=== PATIENT | male | born 1985 | race Hispanic/Latino ===

== ENCOUNTER 2018-02-20 12:04 | Emergency (ER) | payer SELFPAY ==
[2018-02-20 13:06] LABS: Basophils # (Auto) 0.1 K/mm3 (0.0-0.1); Basophils % (Auto) 0.8 % (0.0-1.8); Eosinophils # (Auto) 0.4 K/mm3 (0.0-0.4); Eosinophils % (Auto) 4.9 % (0.0-4.3); Hemoglobin 14.9 gm/dl (11.8-15.2); Lymphocytes # (Auto) 1.6 K/mm3 (1.2-5.4); Lymphocytes % (Auto) 20.6 % (13.4-35.0); Mean Corpuscular HGB Conc 34 % (32-34); Mean Corpuscular Hemoglobin 32 pg (28-32); Mean Corpuscular Volume 94 fl (84-94); Monocytes # (Auto) 0.7 K/mm3 (0.0-0.8); Monocytes % (Auto) 9.1 % (0.0-7.3); Platelet Count 225 K/mm3 (140-440); Red Blood Count 4.69 M/mm3 (3.65-5.03); Red Cell Distribution Width 13.3 % (13.2-15.2)
[2018-02-20 13:21] LABS: BUN/Creatinine Ratio 13; Blood Urea Nitrogen 9 mg/dL (9-20); Calcium 9.4 mg/dL (8.4-10.2); Hemolysis Index 4
[2018-02-20 13:49] LABS: Bacteria,Urine 1+ /HPF (Negative); Bilirubin,Urine NEG (Negative); Blood,Urine NEG (Negative); Calcium Oxalate Crystals,Urine 3+; Color,Urine Amber (Yellow); Hyaline Casts,Urine 3 /LPF; Mucus,Urine 1+ /HPF; Urobilinogen,Urine < 2.0 mg/dL (<2.0)
[2018-02-20 13:50] LABS: Cocaine Screen,Urine PRESUMPTIVE NEGATIVE; Methadone Screen,Urine PRESUMPTIVE NEGATIVE; Opiate Screen,Urine PRESUMPTIVE NEGATIVE
--- NOTE | 2018-02-20 14:16 | Emergency Department Report ---
ED Psych HPI - General Chief Complaint: Psych Stated Complaint: MEDICAL CLEARANCE PHP Time Seen by Provider: 02/20/18 14:15 Source: patient Mode of arrival: Ambulatory - History of Present Illness Initial Comments: Patient is a 32-year-old male past medical history of alcohol abuse, neuropathy and drug abuse who presents with medical clearance. Patient states that a couple hours ago he states that he took a 5 pills of gabapentin due to his right foot pain. The patient is staying at [facility] and since he took extra pills he needs to be medically cleared before he can return back. Patient denies any nausea or vomiting any pain when urinating. Any headaches. Patient denies any fever and states that he wants to get clean. - Related Data Allergies Allergy/AdvReac Type Severity Reaction Status Date / Time phenobarbital Allergy Unknown Verified 02/20/18 12:15 Sulfa (Sulfonamide Allergy Unknown Verified 02/20/18 12:15 Antibiotics) ED Review of Systems ROS: Stated complaint: MEDICAL CLEARANCE PHP Other details as noted in HPI Constitutional: denies: chills, fever Eyes: denies: eye pain, eye discharge, vision change ENT: denies: ear pain, throat pain Respiratory: denies: cough, shortness of breath, wheezing Cardiovascular: denies: chest pain, palpitations Endocrine: no symptoms reported Gastrointestinal: denies: abdominal pain, nausea, diarrhea Genitourinary: denies: urgency, dysuria Musculoskeletal: denies: back pain, joint swelling, arthralgia Skin: denies: rash, lesions Neurological: denies: headache, weakness, paresthesias Psychiatric: denies: anxiety, depression Hematological/Lymphatic: denies: easy bleeding, easy bruising ED Past Medical Hx - Past Medical History Previous Medical History?: No Hx Psychiatric Treatment: Yes (opioid dependency,ADHD, bipolar) Additional medical history: pancreatitis,alcohol abuse-in recovery [id number] - Surgical History Additional Surgical History: fx right femur - Social History Smoking Status: Former Smoker Substance Use Type: Heroin, Prescribed, Methamphetamines ED Physical Exam - General Limitations: No Limitations General appearance: alert, in no apparent distress - Head Head exam: Present: atraumatic, normocephalic - Eye Eye exam: Present: normal appearance - ENT ENT exam: Present: mucous membranes moist - Neck Neck exam: Present: normal inspection - Respiratory Respiratory exam: Present: normal lung sounds bilaterally. Absent: respiratory distress - Cardiovascular Cardiovascular Exam: Present: regular rate, normal rhythm. Absent: systolic murmur, diastolic murmur, rubs, gallop - GI/Abdominal GI/Abdominal exam: Present: soft, normal bowel sounds - Rectal Rectal exam: Present: deferred - Extremities Exam Extremities exam: Present: normal inspection - Back Exam Back exam: Present: normal inspection - Neurological Exam Neurological exam: Present: alert, oriented X3 - Psychiatric Psychiatric exam: Present: normal affect, normal mood - Skin Skin exam: Present: warm, dry, intact, normal color. Absent: rash ED Course Vital Signs 02/20/18 12:11 Temperature 98.2 F Pulse Rate 104 H Respiratory 18 Rate Blood Pressure 113/83 O2 Sat by Pulse 97 Oximetry ED Medical Decision Making - Lab Data Result diagrams: 02/20/18 12:19 02/20/18 12:19 Lab Results 02/20/18 02/20/18 02/20/18 Range/Units 12:19 12:19 12:19 WBC (4.5-11.0) K/mm3 RBC (3.65-5.03) M/mm3 Hgb (11.8-15.2) gm/dl Hct (35.5-45.6) % MCV (84-94) fl MCH (28-32) pg MCHC (32-34) % RDW (13.2-15.2) % Plt Count (140-440) K/mm3 Lymph % (Auto) (13.4-35.0) % [place] % (Auto) (0.0-7.3) % Eos % (Auto) (0.0-4.3) % Baso % (Auto) (0.0-1.8) % Lymph # (1.2-5.4) K/mm3 [place] # (0.0-0.8) K/mm3 Eos # (0.0-0.4) K/mm3 Baso # (0.0-0.1) K/mm3 Seg Neutrophils % (40.0-70.0) % Seg Neutrophils # (1.8-7.7) K/mm3 Sodium 141 (137-145) mmol/L Potassium 3.4 L (3.6-5.0) mmol/L Chloride 98.8 (98-107) mmol/L Carbon Dioxide 28 (22-30) mmol/L Anion Gap 18 mmol/L BUN 9 (9-20) mg/dL Creatinine 0.7 L (0.8-1.5) mg/dL Estimated GFR > 60 ml/min BUN/Creatinine Ratio 13 % Glucose 91 (75-100) mg/dL Calcium 9.4 (8.4-10.2) mg/dL Urine Color (Yellow) Urine Turbidity (Clear) Urine pH (5.0-7.0) Ur Specific [place] (1.003-1.030) Urine Protein (Negative) mg/dL Urine Glucose (UA) (Negative) mg/dL Urine Ketones (Negative) mg/dL Urine Blood (Negative) Urine Nitrite (Negative) Urine Bilirubin (Negative) Urine Urobilinogen (<2.0) mg/dL Ur Leukocyte Esterase (Negative) Urine WBC (Auto) (0.0-6.0) /HPF Urine RBC (Auto) (0.0-6.0) /HPF Urine Bacteria (Auto) (Negative) /HPF Calcium Oxalate Crystal Hyaline Casts /LPF Urine Mucus /HPF Salicylates < 0.3 L (2.8-20.0) mg/dL Urine Opiates Screen Urine Methadone Screen Acetaminophen < 5.0 L (10.0-30.0) ug/mL Ur Barbiturates Screen Ur Phencyclidine Scrn Urine Cocaine Screen Plasma/Serum Alcohol (0-0.07) % 02/20/18 02/20/18 02/20/18 Range/Units 12:19 12:19 12:43 WBC 7.7 (4.5-11.0) K/mm3 RBC 4.69 (3.65-5.03) M/mm3 Hgb 14.9 (11.8-15.2) gm/dl Hct 44.0 (35.5-45.6) % MCV 94 (84-94) fl MCH 32 (28-32) pg MCHC 34 (32-34) % RDW 13.3 (13.2-15.2) % Plt Count 225 (140-440) K/mm3 Lymph % (Auto) 20.6 (13.4-35.0) % [place] % (Auto) 9.1 H (0.0-7.3) % Eos % (Auto) 4.9 H (0.0-4.3) % Baso % (Auto) 0.8 (0.0-1.8) % Lymph # 1.6 (1.2-5.4) K/mm3 [place] # 0.7 (0.0-0.8) K/mm3 Eos # 0.4 (0.0-0.4) K/mm3 Baso # 0.1 (0.0-0.1) K/mm3 Seg Neutrophils % 64.6 (40.0-70.0) % Seg Neutrophils # 5.0 (1.8-7.7) K/mm3 Sodium (137-145) mmol/L Potassium (3.6-5.0) mmol/L Chloride (98-107) mmol/L Carbon Dioxide (22-30) mmol/L Anion Gap mmol/L BUN (9-20) mg/dL Creatinine (0.8-1.5) mg/dL Estimated GFR ml/min BUN/Creatinine Ratio % Glucose (75-100) mg/dL Calcium (8.4-10.2) mg/dL Urine Color Sumi (Yellow) Urine Turbidity Cloudy (Clear) Urine pH 5.0 (5.0-7.0) Ur Specific [place] 1.017 (1.003-1.030) Urine Protein 30 mg/dl (Negative) mg/dL Urine Glucose (UA) Neg (Negative) mg/dL Urine Ketones Neg (Negative) mg/dL Urine Blood Neg (Negative) Urine Nitrite Neg (Negative) Urine Bilirubin Neg (Negative) Urine Urobilinogen < 2.0 (<2.0) mg/dL Ur Leukocyte Esterase Tr (Negative) Urine WBC (Auto) 19.0 H (0.0-6.0) /HPF Urine RBC (Auto) 9.0 (0.0-6.0) /HPF Urine Bacteria (Auto) 1+ (Negative) /HPF Calcium Oxalate Crystal 3+ Hyaline Casts 3 /LPF Urine Mucus 1+ /HPF Salicylates (2.8-20.0) mg/dL Urine Opiates Screen Urine Methadone Screen Acetaminophen (10.0-30.0) ug/mL Ur Barbiturates Screen Ur Phencyclidine Scrn Urine Cocaine Screen Plasma/Serum Alcohol < 0.01 (0-0.07) % 02/20/18 Range/Units 12:43 WBC (4.5-11.0) K/mm3 RBC (3.65-5.03) M/mm3 Hgb (11.8-15.2) gm/dl Hct (35.5-45.6) % MCV (84-94) fl MCH (28-32) pg MCHC (32-34) % RDW (13.2-15.2) % Plt Count (140-440) K/mm3 Lymph % (Auto) (13.4-35.0) % [place] % (Auto) (0.0-7.3) % Eos % (Auto) (0.0-4.3) % Baso % (Auto) (0.0-1.8) % Lymph # (1.2-5.4) K/mm3 [place] # (0.0-0.8) K/mm3 Eos # (0.0-0.4) K/mm3 Baso # (0.0-0.1) K/mm3 Seg Neutrophils % (40.0-70.0) % Seg Neutrophils # (1.8-7.7) K/mm3 Sodium (137-145) mmol/L Potassium (3.6-5.0) mmol/L Chloride (98-107) mmol/L Carbon Dioxide (22-30) mmol/L Anion Gap mmol/L BUN (9-20) mg/dL Creatinine (0.8-1.5) mg/dL Estimated GFR ml/min BUN/Creatinine Ratio % Glucose (75-100) mg/dL Calcium (8.4-10.2) mg/dL Urine Color (Yellow) Urine Turbidity (Clear) Urine pH (5.0-7.0) Ur Specific [place] (1.003-1.030) Urine Protein (Negative) mg/dL Urine Glucose (UA) (Negative) mg/dL Urine Ketones (Negative) mg/dL Urine Blood (Negative) Urine Nitrite (Negative) Urine Bilirubin (Negative) Urine Urobilinogen (<2.0) mg/dL Ur Leukocyte Esterase (Negative) Urine WBC (Auto) (0.0-6.0) /HPF Urine RBC (Auto) (0.0-6.0) /HPF Urine Bacteria (Auto) (Negative) /HPF Calcium Oxalate Crystal Hyaline Casts /LPF Urine Mucus /HPF Salicylates (2.8-20.0) mg/dL Urine Opiates Screen Presumptive negative Urine Methadone Screen Presumptive negative Acetaminophen (10.0-30.0) ug/mL Ur Barbiturates Screen Presumptive negative Ur Phencyclidine Scrn Presumptive negative Urine Cocaine Screen Presumptive negative Plasma/Serum Alcohol (0-0.07) % - Medical Decision Making Cdx: Gapabentin abuse ddx: Alcohol intoxication, opiate abuse I will get cbc, bmp, urine drug screen and ua. Patient's lab work is unremarkable. Patient has been medically cleared to go to [facility]. Discussed final impression patient with supportive additional verbal instructions were given. Critical care attestation.: If time is entered above; I have spent that time in minutes in the direct care of this critically ill patient, excluding procedure time. ED Disposition Clinical Impression: Medical clearance for psychiatric admission Adverse effect of gabapentin Qualifiers: Encounter type: initial encounter Qualified Code(s): T42.6X5A - Adverse effect of other antiepileptic and sedative-hypnotic drugs, initial encounter Disposition: Z-41 HOSPICE- MED FAC Is pt being admited?: No Does the pt Need Aspirin: No Condition: Stable Instructions: Medical Clearance for Substance Abuse Treatment (ED) Referrals: DELON CARMONA MD [Staff Physician] - 3-5 Days
[2018-02-20 14:37] LABS: Amphetamine Screen,Urine PRESUMPTIVE POSITIVE; Benzodiazepines Screen,Urine PRESUMPTIVE POSITIVE; Cannabinoid Screen,Urine PRESUMPTIVE POSITIVE
[2018-02-20 15:31] VITALS: BP 117/71
== END 2018-02-20 15:33 | disposition home or self-care (01) ==
LOC: ED 12:04
DX: T42.6X5A Adverse effect of other antiepileptic and sedative-hypnotic drugs, initial encounter (principal); F90.9 Attention-deficit hyperactivity disorder, unspecified type; F15.10 Other stimulant abuse, uncomplicated; F11.20 Opioid dependence, uncomplicated; Z87.891 Personal history of nicotine dependence; Z88.8 Allergy status to other drugs, medicaments and biological substances; Z88.2 Allergy status to sulfonamides; X58.XXXA Exposure to other specified factors, initial encounter; Y93.89 Activity, other specified; Y92.89 Other specified places as the place of occurrence of the external cause; Y99.8 Other external cause status
CPT/HCPCS: 36415; 80048; 80307; 81001; 85025; 99284; G0480; 80320

== ENCOUNTER 2018-04-13 01:21 | Emergency (ER) | payer OTHER ==
[2018-04-13 01:49] VITALS: BP 132/83
[2018-04-13] MEDS ORDERED: ROCEPHIN IM STA (02:55)
[2018-04-13] MEDS ORDERED: XYLOCAINE 1% MPF 5 mL INFILTRATI ONE (02:55)
[2018-04-13] MEDS ORDERED: DELTASONE PO STA (02:59)
--- NOTE | 2018-04-13 03:11 | Emergency Department Report ---
- General Chief Complaint: Extremity Injury, Lower Stated Complaint: RT FOOT SWELLING NECK SORES Time Seen by Provider: 04/13/18 02:54 Source: patient Mode of arrival: Ambulatory Limitations: No Limitations - History of Present Illness Initial Comments: 33-year-old male with past medical history opiate dependency, presents to the emergency department complaining of a 2-3 day history of progressively worsening right foot swelling associated with redness and abrasions. Pain is dull and throbbing, worse with palpation and range of motion. He tried no home therapy to date. Reports no fever, chills, sweats, nausea, vomiting, chest pain, palpitations. Extremity Location: Right: Lower Leg Place: home Associated Symptoms: pain. denies: suspect foreign body present, unable to move injured part, weakness followed by dizziness, nausea/vomiting - Related Data Previous Rx's Medication Instructions Recorded Last Taken Type Chlorhexidine Gluconate [Hibiclens] 10 ml TP BID #240 liquid 04/13/18 Unknown Rx Clindamycin [Clindamycin CAP] 150 mg PO Q6HR #40 capsule 04/13/18 Unknown Rx Mupirocin [Bactroban 2%] 15 applic TP TID #15 gm 04/13/18 Unknown Rx cephALEXin [Keflex] 500 mg PO Q6HR #40 capsule 04/13/18 Unknown Rx Allergies Allergy/AdvReac Type Severity Reaction Status Date / Time phenobarbital Allergy Unknown Verified 02/20/18 12:15 Sulfa (Sulfonamide Allergy Unknown Verified 02/20/18 12:15 Antibiotics) ED Review of Systems ROS: Stated complaint: RT FOOT SWELLING NECK SORES Other details as noted in HPI Constitutional: denies: chills, fever Eyes: denies: eye pain, eye discharge, vision change ENT: denies: ear pain, throat pain Respiratory: denies: cough, shortness of breath, wheezing Cardiovascular: denies: chest pain, palpitations Endocrine: no symptoms reported Gastrointestinal: denies: abdominal pain, nausea, diarrhea Genitourinary: denies: urgency, dysuria Musculoskeletal: denies: back pain, joint swelling, arthralgia Skin: lesions. denies: rash Neurological: denies: headache, weakness, paresthesias Psychiatric: denies: anxiety, depression Hematological/Lymphatic: denies: easy bleeding, easy bruising ED Past Medical Hx - Past Medical History Previous Medical History?: Yes Hx Psychiatric Treatment: Yes (opioid dependency,ADHD, bipolar) Additional medical history: pancreatitis,alcohol abuse-in recovery [id number] - Surgical History Past Surgical History?: Yes Additional Surgical History: fx right femur - Social History Smoking Status: Never Smoker Substance Use Type: None - Medications Home Medications: Home Medications Medication Instructions Recorded Confirmed Last Taken Type Chlorhexidine Gluconate [Hibiclens] 10 ml TP BID #240 liquid 04/13/18 Unknown Rx Clindamycin [Clindamycin CAP] 150 mg PO Q6HR #40 capsule 04/13/18 Unknown Rx Mupirocin [Bactroban 2%] 15 applic TP TID #15 gm 04/13/18 Unknown Rx cephALEXin [Keflex] 500 mg PO Q6HR #40 capsule 04/13/18 Unknown Rx ED Physical Exam - General Limitations: No Limitations General appearance: alert, in no apparent distress - Head Head exam: Present: atraumatic, normocephalic - Eye Eye exam: Present: normal appearance - ENT ENT exam: Present: mucous membranes moist - Neck Neck exam: Present: normal inspection - Respiratory Respiratory exam: Present: normal lung sounds bilaterally. Absent: respiratory distress - Cardiovascular Cardiovascular Exam: Present: regular rate, normal rhythm. Absent: systolic murmur, diastolic murmur, rubs, gallop - GI/Abdominal GI/Abdominal exam: Present: soft, normal bowel sounds - Rectal Rectal exam: Present: deferred - Extremities Exam Extremities exam: Present: normal inspection, tenderness, normal capillary refill, pedal edema - Expanded Lower Extremity Exam Right Hip exam: Present: normal inspection, full ROM Upper Leg exam: Present: normal inspection, full ROM Knee exam: Present: normal inspection, full ROM Lower Leg exam: Present: tenderness, swelling, abrasion, erythema. Absent: deformity, crepidus, dislocation, palpable cord, Lesia's sign Ankle exam: Present: tenderness, swelling Foot/Toe exam: Present: tenderness, swelling, abrasion Neuro vascular tendon exam: Present: no vascular compromise 1 - Abrasion 2 - Abrasion 3 - Abrasion 4 - Abrasion - Back Exam Back exam: Present: normal inspection. Absent: muscle spasm, paraspinal tenderness, vertebral tenderness - Neurological Exam Neurological exam: Present: alert, oriented X3, CN II-XII intact. Absent: normal gait, abnormal gait - Psychiatric Psychiatric exam: Present: normal affect, normal mood - Skin Skin exam: Present: warm, dry, intact, normal color. Absent: rash ED Course Vital Signs 04/13/18 01:45 Temperature 98.3 F Pulse Rate 86 Respiratory 16 Rate Blood Pressure 132/83 O2 Sat by Pulse 96 Oximetry Critical care attestation.: If time is entered above; I have spent that time in minutes in the direct care of this critically ill patient, excluding procedure time. ED Disposition Clinical Impression: Cellulitis, Right leg swelling Disposition: - TO HOME OR SELFCARE Is pt being admited?: No Does the pt Need Aspirin: No Condition: Stable Instructions: Cellulitis (ED) Referrals: PRIMARY MD EDITH [Primary Care Provider] - 3-5 Days [facility] [Provider Group] - 3-5 Days
[2018-04-13] MEDS ORDERED: TORADOL IM STA (03:26)
== END 2018-04-13 03:58 | disposition home or self-care (01) ==
LOC: ED 01:21
DX: L03.115 Cellulitis of right lower limb (principal); F31.9 Bipolar disorder, unspecified; F90.9 Attention-deficit hyperactivity disorder, unspecified type; Z88.1 Allergy status to other antibiotic agents; Z88.2 Allergy status to sulfonamides
CPT/HCPCS: 96372; 99282; J0696; J1885; J7512

== ENCOUNTER 2019-09-21 23:42 | Emergency (ER) | payer OTHER ==
[2019-09-22 00:43] LABS: Basophils % (Auto) 0.3 % (0.0-1.8); Eosinophils # (Auto) 0.4 K/mm3 (0.0-0.4); Hematocrit 36.4 % (35.5-45.6); Hemoglobin 12.6 gm/dl (11.8-15.2); Lymphocytes # (Auto) 1.7 K/mm3 (1.2-5.4); Mean Corpuscular HGB Conc 35 % (32-34); Mean Corpuscular Volume 94 fl (84-94); Monocytes # (Auto) 0.5 K/mm3 (0.0-0.8); Monocytes % (Auto) 7.3 % (0.0-7.3); Platelet Count 249 K/mm3 (140-440); Red Blood Count 3.89 M/mm3 (3.65-5.03); Red Cell Distribution Width 12.9 % (13.2-15.2)
--- NOTE | 2019-09-22 00:59 | Emergency Department Report ---
ED Medical Clearance HPI - General Chief complaint: Medical Clearance Stated complaint: DETOX,HEROIN USE Time Seen by Provider: 09/22/19 00:22 Source: patient Mode of arrival: Ambulatory Limitations: No Limitations - History of Present Illness Initial comments: 34-year-old male with a past medical history of polysubstance abuse presents to the hospital requesting medical clearance for detox for [place] admission. Patient states he initially went to [place] was told to come to the ER for medical clearance. Patient has a been abusing multiple drugs for the past 5 days. Patient is abusing IV heroin, smoking cocaine, and also using Xanax. On average she takes 6 to 8 mg of Xanax a day. He denies alcohol abuse. No physical complaints reported Home medications: Previous Rx's Medication Instructions Recorded Last Taken Type Chlorhexidine Gluconate [Hibiclens] 10 ml TP BID #240 liquid 04/13/18 Unknown Rx Clindamycin [Clindamycin CAP] 150 mg PO Q6HR #40 capsule 04/13/18 Unknown Rx Mupirocin [Bactroban 2%] 15 applic TP TID #15 gm 04/13/18 Unknown Rx cephALEXin [Keflex] 500 mg PO Q6HR #40 capsule 04/13/18 Unknown Rx predniSONE [Deltasone] 20 mg PO QDAY #4 tab 04/13/18 Unknown Rx Ciprofloxacin HCl [Ciprofloxacin 500 mg PO Q12HR #10 tab 09/22/19 Unknown Rx TAB] Allergies/Adverse reactions: Allergies Allergy/AdvReac Type Severity Reaction Status Date / Time phenobarbital Allergy Unknown Verified 02/20/18 12:15 Sulfa (Sulfonamide Allergy Unknown Verified 02/20/18 12:15 Antibiotics) ED Review of Systems ROS: Stated complaint: DETOX,HEROIN USE Other details as noted in HPI Comment: All other systems reviewed and negative ED Past Medical Hx - Past Medical History Previous Medical History?: Yes Hx Psychiatric Treatment: Yes (opioid dependency,ADHD, bipolar) Additional medical history: pancreatitis,alcohol abuse-in recovery [id number] - Surgical History Past Surgical History?: Yes Additional Surgical History: fx right femur - Social History Smoking Status: Former Smoker Substance Use Type: Cocaine, Heroin, Marijuana, Non Opiate Pain, Other - Medications Home Medications: Home Medications Medication Instructions Recorded Confirmed Last Taken Type Chlorhexidine Gluconate [Hibiclens] 10 ml TP BID #240 liquid 04/13/18 Unknown Rx Clindamycin [Clindamycin CAP] 150 mg PO Q6HR #40 capsule 04/13/18 Unknown Rx Mupirocin [Bactroban 2%] 15 applic TP TID #15 gm 04/13/18 Unknown Rx cephALEXin [Keflex] 500 mg PO Q6HR #40 capsule 04/13/18 Unknown Rx predniSONE [Deltasone] 20 mg PO QDAY #4 tab 04/13/18 Unknown Rx Ciprofloxacin HCl [Ciprofloxacin 500 mg PO Q12HR #10 tab 09/22/19 Unknown Rx TAB] ED Physical Exam - General Limitations: No Limitations - Other Other exam information: General: No acute distress Head: Atraumatic Eyes: normal appearance ENT: Moist mucous membranes Neck: Normal appearance, no midline tenderness Chest: Clear to auscultation bilaterally CV: Regular rate and rhythm Abdomen: Soft, normal bowel sounds, nontender, nondistended, no rebound or guarding Back: Normal inspection Extremity: Normal inspection, full range of motion Neuro: Alert O x 3, no facial asymmetry, speech clear, no gross motor sensory deficit Psych: Appropriate behavior Skin: Multiple track bailey ED Course Vital Signs 09/21/19 09/22/19 09/22/19 23:50 00:54 03:14 Temperature 97.6 F 98.6 F 98.2 F Pulse Rate 80 87 71 Respiratory 20 16 16 Rate Blood Pressure 118/73 Blood Pressure 104/67 127/81 [Left] O2 Sat by Pulse 92 98 98 Oximetry - Reevaluation(s) Reevaluation #1: 09/22/19 01:00 Patient has a room air saturation 98% ED Medical Decision Making - Lab Data Result diagrams: 09/22/19 00:27 09/22/19 00:27 - Medical Decision Making Patient is voluntary and requesting detox treatment. Medically cleared in the ED. Patient is voluntary and does not meet 1013 criteria pt with + uti. given age pt tx with rocephin and azithromycin. Pt will also be tx with cipro for several days. - Differential Diagnosis Polysubstance abuse ED Disposition Clinical Impression: Heroin abuse, Benzodiazepine abuse, Cocaine abuse, Medical clearance for psychiatric admission, UTI (urinary tract infection) Disposition: [id number]/TX-65 PSY HOSP/PSY UNIT Is pt being admited?: No Condition: Stable Instructions: Urinary Tract Infection in Men (ED), Polysubstance Abuse (ED) Additional Instructions: Go to [facility] for further treatment. Return if symptoms worsen as indicated by your discharge instructions Prescriptions: Ciprofloxacin HCl [Ciprofloxacin TAB] 500 mg PO Q12HR #10 tab Referrals: [facility] [Other] - SHIN Time of Disposition: 02:27
[2019-09-22 01:11] LABS: BUN/Creatinine Ratio 6; Blood Urea Nitrogen 5 mg/dL (9-20); Calcium 8.9 mg/dL (8.4-10.2); Hemolysis Index 6
[2019-09-22 02:30] LABS: Bacteria,Urine 1+ /HPF (Negative); Bilirubin,Urine NEG (Negative); Blood,Urine NEG (Negative); Color,Urine Yellow (Yellow); Hyaline Casts,Urine 1 /LPF; Mucus,Urine 2+ /HPF; Protein,Urine <15 mg/dL mg/dL (Negative); Urobilinogen,Urine < 2.0 mg/dL (<2.0)
[2019-09-22] MEDS ORDERED: AZITHROMYCIN 250 MG TAB PO ONE (02:35)
[2019-09-22] MEDS ORDERED: LIDOCAINE-MPF (1%) 10 MG/1 ML VIAL 5 ML INFILTRATI ONE (02:35)
[2019-09-22 02:36] LABS: Methadone Screen,Urine PRESUMPTIVE NEGATIVE
[2019-09-22 02:50] LABS: Amphetamine Screen,Urine PRESUMPTIVE POSITIVE; Benzodiazepines Screen,Urine PRESUMPTIVE POSITIVE; Cannabinoid Screen,Urine PRESUMPTIVE POSITIVE; Cocaine Screen,Urine PRESUMPTIVE POSITIVE; Opiate Screen,Urine PRESUMPTIVE POSITIVE
[2019-09-22 03:21] VITALS: BP 127/81
== END 2019-09-22 04:45 ==
LOC: ED 23:42
DX: F11.10 Opioid abuse, uncomplicated (principal); F13.10 Sedative, hypnotic or anxiolytic abuse, uncomplicated; F14.10 Cocaine abuse, uncomplicated; N39.0 Urinary tract infection, site not specified; F90.9 Attention-deficit hyperactivity disorder, unspecified type; F31.9 Bipolar disorder, unspecified; Z00.8 Encounter for other general examination; Z79.899 Other long term (current) drug therapy; Z87.891 Personal history of nicotine dependence; Z88.2 Allergy status to sulfonamides; Z88.8 Allergy status to other drugs, medicaments and biological substances
CPT/HCPCS: 36415; 80048; 80307; 81001; 82550; 85025; 87086; 96372; 99284; J0696; 80320; G0480